=== PATIENT | female | born 1955 | race Caucasian/White ===

== ENCOUNTER 2022-10-14 07:35 | Outpatient (CLI) | payer MEDICARE, SELFPAY ==
[2022-10-14 13:32] LABS: Albumin* 4.1 g/dL (3.3-5.0); Chloride* 107 mmol/L (96-114)
[2022-10-14 13:33] LABS: Potassium* 4.1 mmol/L (3.6-5.1); Sodium* 139 mmol/L (135-149)
[2022-10-14 13:35] LABS: Carbon Dioxide* 26 mmol/L (20-32); Cholesterol* 166 mg/dL (90-199); Creatinine* 0.6 mg/dL (0.5-1.5); Estimated Glomerular Filt Rate 99 ml/min
[2022-10-14 13:36] LABS: Alanine Aminotransferase* 14 U/L (4-35); Alkaline Phosphatase* 66 U/L (40-150); Aspartate Amino Transferase* 18 U/L (12-35); Bilirubin Total* 0.6 mg/dL (0.1-1.5); Blood Urea Nitrogen* 15 mg/dL (7-30); Calcium* 9.3 mg/dL (8.4-10.6); Glucose* 92 mg/dL (60-115); Total Protein* 6.2 g/dL (6.0-8.3); Triglycerides* 84 mg/dL (40-149)
[2022-10-14 13:37] LABS: HDL Cholesterol* 66 mg/dL (>=50); LDL Cholesterol Calculated 83 mg/dL (<100)
[2022-10-14 13:40] LABS: Vitamin D 25 Hydroxy* 37 ng/mL (30-80)
== END 2022-10-14 07:36 | disposition home or self-care (01) ==
LOC: FRMREF 07:36
PROVIDERS: PCP Family Medicine; Visit Provider Family Medicine
DX: Z00.00 Encounter for general adult medical examination without abnormal findings (principal); E78.5 Hyperlipidemia, unspecified; E66.9 Obesity, unspecified
CPT/HCPCS: 80053; 80061; 82306

== ENCOUNTER 2023-06-13 13:22 | Outpatient (CLI) | payer MEDICARE, SELFPAY ==
--- OUTSIDE RECORDS SUMMARY | 2023-06-13 13:26 | XMS_ITS | Continuity of Care Document ---
Author Name Unknown Organization [facility] Address [address] [place] [address] Phone Care Team Providers Care Grinding Mill Operator Name Role Phone Bob Kelly MD Unavailable Unavailable Allergies, Adverse Reactions, Alerts Substance Reaction Status Criticality No Known Allergies Resolved No Inform ation Medications Medication Instructions Dosage Effective Dates (start - stop) Status Comments Voltaren 1 % topical gel Apply 2 gm 3 times a day to small joints and 4 gm 3 times a day to large joints - Active Bufferin 81 mg tablet take 1 tablet by oral route every day - Active Caltrate 600 + D 600 mg (1,500 mg)-800 unit chewable tablet take 1 tablet by oral route every day 1 tablet - Active ibuprofen 200 mg tablet take 3 tablet by oral route every 6 hours as needed with food 600 MG - Active Voltaren 1 % topical gel Apply 2 gm 3 times a day to small joints and 4 gm 3 times a day to large joints - No Longer Active Procedures Procedure Date Office/Outpatient Visit, Est Advance Directives Directive Yes / No Effective Date File Name No Information Encounters Encounter Description Practice Location Reason(s) For Visit Diagnoses Date Provider Providers Copied on Encounter [facility] , [address], [place], [address], [place] tel:[phone] [facility] , No Information 6 Leticia Rojas. [facility] [address], [place], [address], [place]. tel:[phone] [facility] , [address], [place], [address], [place] tel:[phone] [facility] , No Information 6 Leticia Rojas. [facility] [address], [place], [address], [place]. tel:[phone] Office/Outpa tient Visit, Est [facility] , [address], [place], [address], [place] tel:[phone] [facility] , Follow Up of Osteoarthrit is (chief complaint) Generalized osteoarthrit isLong-term use of NSAID 5 Leticia Rojas. [facility] [address], [place], [address], [place]. tel:[phone] Referring Provider: Bob Milian, [facility] [address], [place], [address]. tel:[phone] Family History Family Member Type Diagnosis Age At Onset Father Problem (finding) coronary arter iosclerosis (Cause Of ) 49 Payers Payer name Insurance type Covered green party ID Andrew mao(s) [facility] [id number] Social History Type Description Quantity Date Captured Comments Alcohol Use Details Unknown Caffeine Use Details Unknown Tobacco Use Status No Information Smoking Status No Information Sex Female Chief Complaint And Reason For Visit No Information Reason For Referral Reason For Referral No Information History Of Present Illness Encounter Date Complaint History Of Prese nt Illness Follow Up of Osteoarthritis Functional Status Date Functional Assessmen t No Information Instructions Date Instruction Additional Infor mation She uses a relativel y low dose of the Voltaren gel. I don't think it's necessary to check laboratories for side effects of that. She's had a relatively recent limited physical exam through a primary physician close to her home. Related to Long-term use of NSAID Overall, there has b susanne little progression of her osteoarthritis over 3 years since I last saw her. I don't think she requires more regular use of an oral nonsteroidal anti-inflammatory medication or any other more aggressive treatment at this point. I will refill her Voltaren gel. Related to Generalized osteoarthritis Assessments Type Assessment Date No Information Patient Care Teams Name Effective Dates (start - stop) Status Members No Information
== END 2023-06-13 13:23 | disposition home or self-care (01) ==
PROVIDERS: PCP Family Medicine; Visit Provider Family Medicine
DX: R55 Syncope and collapse (principal); E78.5 Hyperlipidemia, unspecified; R03.0 Elevated blood-pressure reading, without diagnosis of hypertension; Z82.41 Family history of sudden cardiac death
CPT/HCPCS: 80053; 84443

== ENCOUNTER 2023-07-07 13:45 | Outpatient (CLI) | payer MEDICARE, SELFPAY | END 2023-07-07 13:46 | disposition home or self-care (01) | LOC: RAD 13:47 | PROVIDERS: PCP Family Medicine; Visit Provider Family Medicine | DX: R55 Syncope and collapse (principal) | CPT/HCPCS: 93306 ==

== ENCOUNTER 2023-10-19 09:13 | Outpatient (CLI) | payer MEDICARE, SELFPAY ==
--- OUTSIDE RECORDS SUMMARY | 2023-10-20 06:56 | XMS_ITS | Clinical Summary ---
Author Name Unknown Organization [facility] Address [address] [place] [address] Care Team Providers Care Supervisor Core Drilling Name Role Phone Unassigned, Provider Primary Care Provider Unava ilable Source Comments You are receiving this document as you are listed as the primary care provider,follow-up provider, or the patient has been referred to you for consultation.This is in compliance with the Medicare and[facility] EHR Incentive Program,which states Providers who transition their patient to another setting of careor provider of care or refers their patient to another provider of care shouldprovide summary care record for each transition of care or referral. [facility] Allergies No known active allergies Medications Medication Sig Dispensed Refills Start Date End Date Status simvastatin (ZOCOR) 10 MG tablet 0 03/12/2020 Active aspirin 81 MG chewable tablet Chew and swallow 81 mg by mouth daily. 0 Active calcium carbonate-vitamin D 600-400 MG-UNIT tablet Take 1 Tablet by mouth daily. 0 Active diclofenac (VOLTAREN) 1 % gel Apply 2 g to skin 4 times a day. 0 Active Social History Tobacco Use Types Packs/Day Years Used Date Smoking Tobacco: Never Sex and Gender Information Value Date Recorded Sex Assigned at Not on file Gender Identity Not on file Sexual Orientation Not on file Plan of Treatment Health Maintenance Due Date Last Done Comments Hep C Screening (Preventive Services) 1955 COVID-19 Vaccine (#1) 03/22/1957 Adult Preventive Visit 1974 Cholesterol 2001 Colon Cancer Screening Plan Due 12/19/2006 12/18/2006 Mammogram 10/22/2014 10/22/2013 Pneumococcal 65+ Yrs (1 - PCV) 2021 Influenza (#1) 2023 07/28/2020, 02/2019, 08/08/2018, Additional history exists DTaP/Tdap/Td (2 - Tdap) 08/05/2026 08/05/2016 Zoster/Shingles Completed 10/24/2019, 02/2019, 07/26/2017 HepA Aged Out No longer eligi ble based on patient's age to complete this topic HepB Aged Out No longer eligi ble based on patient's age to complete this topic Hib Aged Out No longer eligi ble based on patient's age to complete this topic IPV (Polio) Aged Out No longer eligi ble based on patient's age to complete this topic MCV4 Aged Out No longer eligi ble based on patient's age to complete this topic Care Teams Supervisor Core Drilling Relationship Specialty Start Date End Date Unassigned, Provider [address] [place] [address] PCP - General 09/13/00
--- OUTSIDE RECORDS SUMMARY | 2023-10-20 06:56 | XMS_ITS | Encounter Summary ---
Author Name Unknown Organization [facility] Address [address] [place] [address] Care Team Providers Care Marine Mammal Trainer Name Role Phone Ana Maria Jacinto MD Primary Care Provider + Encounter Details Date Type Department Care Team (Latest Contact Info) Description 09/01/2023 Travel Social History Tobacco Use Types Packs/Day Years Used Date Smoking Tobacco: Never Assessed Adolescent Education Answer Date Record ed Getting School Help Needed Not on file 07/16 Sex and Gender Information Value Date Recorded Sex Assigned at Female 08/26/2021 8:56 AM ROUNDHOUSE WORKER Gender Identity Female 08/26/2021 8:56 AM ROUNDHOUSE WORKER Sexual Orientation Straight 08/26/2021 8: 56 AM ROUNDHOUSE WORKER documented as of this encounter Plan of Treatment Not on file documented as of this encounter Visit Diagnoses Not on filedocumented in this encounter Care Teams Marine Mammal Trainer Relationship Specialty Start Date End Date Ana Maria Jacinto MD [facility] [address] [place] [address] PCP - General Family Practice 07/18/19 documented as of this encounter
--- OUTSIDE RECORDS SUMMARY | 2023-10-20 06:56 | XMS_ITS | Clinical Summary ---
Author Name Unknown Organization [facility] Address [address] [place] [address] Care Team Providers Care Kitchen Supervisor Name Role Phone Ana Maria Jacinto MD Primary Care Provider + Allergies No known active allergies Medications Medication Sig Dispensed Refills Start Date End Date Status ASPIRIN PO Take 81 mg by mouth daily 0 Active IBUPROFEN PO Take 600 mg by mouth every 6 hours as needed for moderate pain 0 Active calcium carbonate-vitamin D 600-400 MG-UNIT CHEW Take 1 tablet by mouth daily 0 Active Cyanocobalamin (VITAMIN B 12 PO) Take by mouth daily 0 Active Active Problems Problem Noted Date Diagnosed Date Cervicalgia 10/07/2008 Encounters Date Type Department Care Team Description 09/01/2023 10:26 AM SUGAR CANE GROWER - 09/01/2023 11:59 PM SUGAR CANE GROWER Hospital Encounter [facility] [address] [facility], [address] [place] [address] Ana Maria Jacinto MD Visit for screening mammogram Discharge Disposition: Home or Self Care 09/01/2023 Travel 08/29/2023 Travel from Last 3 Months Family History Medical History Relation Comments Breast Cancer No family hx of Ovarian Cancer No family hx of Social History Tobacco Use Types Packs/Day Years Used Date Smoking Tobacco: Never Assessed Adolescent Education Answer Date Record ed Getting School Help Needed Not on file 07/16 Sex and Gender Information Value Date Recorded Sex Assigned at Female 08/26/2021 8:56 AM SUGAR CANE GROWER Gender Identity Female 08/26/2021 8:56 AM SUGAR CANE GROWER Sexual Orientation Straight 08/26/2021 8: 56 AM SUGAR CANE GROWER Last Filed Vital Signs Vital Sign Reading Time Taken Comments Blood Pressure 154/74 01/15/2015 3:30 PM CDT Pulse 68 01/15/2015 3:30 PM CDT Temperature 36.7 ??C (98.1 ??F) 01/15/2015 12:37 PM C DT Respiratory Rate 16 01/15/2015 12:37 PM CDT Oxygen Saturation 97% 01/15/2015 12:37 PM CDT Inhaled Oxygen Concentration - - Weight 86.2 kg (190 lb) 01/15/2015 12:37 PM CDT Height 175.3 cm (5' 9) 01/15/2015 12:37 PM CDT Body Mass Index 28.06 01/15/2015 12:37 PM CDT Plan of Treatment Health Maintenance Due Date Last Done Comments ADVANCE CARE PLANNING 1955 ANNUAL REVIEW OF HM ORDERS 1956 CT COLONOGRAPHY 1955 DEXA 1955 FIT 1955 FLEX SIG 1955 sDNA (Cologuard) 1955 COVID-19 Vaccine (#1) 03/22/1957 HEPATITIS C SCREENING 1974 LIPID 2001 RSV VACCINE ( & 60+) (1 - 1-dose 60+ series) 2016 FALL RISK ASSESSMENT 2021 MEDICARE ANNUAL WELLNESS VISIT 2021 INFLUENZA VACCINE (#1) 2023 , 07/28/2020, 08/13/2019, Additional history exists PHQ-2 (once per calendar year) 2023 MAMMO SCREENING 09/01/2025 09/01/2023, 08/10, 08/26/2021, Additional history exists DTAP/TDAP/TD IMMUNIZATION (2 - Td or Tdap) 08/05/2026 08/05/2016 COLONOSCOPY 10/28/2032 10/28/2022, 10/10, 12/18/2006 COLORECTAL CANCER SCREENING 10/28/2032 ZOSTER IMMUNIZATION Completed 10/24/2019, 08/13/2019, 07/26/2017 Pneumococcal Vaccine: 65+ Years Completed 10/18/2022 HPV IMMUNIZATION Aged Out No longer e ligible based on patient's age to complete this topic IPV IMMUNIZATION Aged Out No longer e ligible based on patient's age to complete this topic MENINGITIS IMMUNIZATION Aged Out No l onger eligible based on patient's age to complete this topic RSV MONOCLONAL ANTIBODY Aged Out No l onger eligible based on patient's age to complete this topic Procedures Procedure Name Priority Date/Time Associated Diagnosis Comments MA SCREENING BILATERAL W/ UMANG Routine 09/01/2023 10:52 AM SUGAR CANE GROWER Visit for screening mammogram from Last 3 Months Results * MA Screening Bilateral w/ Umang (09/01/2023 10:52 AM SUGAR CANE GROWER) Anatomical Region Laterality Modality Breast Bilateral Mammography Impressions 09/01/2023 1:00 PM SUGAR CANE GROWER IMPRESSION: ACR BI-RADS Category 1: Negative RECOMMENDED FOLLOW-UP: Annual routine screening mammogram The results and recommendations of this examination will be communicated to the patient. Salvatore Potter MD Narrative 09/01/2023 1:00 PM SUGAR CANE GROWER BILATERAL FULL FIELD DIGITAL SCREENING MAMMOGRAM WITH TOMOSYNTHESIS Performed on: 09/01/23 Compared to: 08/30/2022 and 07/05/2018 Technique: ??This study was evaluated with the assistance of Computer-Aided Detection. ??Breast Tomosynthesis was used in interpretation. Findings: The breasts have scattered areas of fibroglandular density. ?? There is no radiographic evidence of malignancy. Ana Maria Jacinto MD IMG MAMMOGRAPHY ORDERABLES from Last 3 Months Care Teams Kitchen Supervisor Relationship Specialty Start Date End Date Ana Maria Jacinto MD [facility] [address] [place] [address] PCP - General Family Practice 07/18/19
--- OUTSIDE RECORDS SUMMARY | 2023-10-20 06:56 | XMS_ITS | Referral Summary ---
Author Name Unknown Organization [facility] Address [address] [place] [address] Care Team Providers Care Calender Wind Up Helper Name Role Phone Ana Maria Jacinto MD Primary Care Provider + Encounters Date Type Department Care Team Description 09/01/2023 Travel 09/01/2023 10:26 AM MANAGER OF APPLICATIONS DEVELOPMENT - 09/01/2023 11:59 PM MANAGER OF APPLICATIONS DEVELOPMENT Hospital Encounter [facility] [address] [facility], [address] [place] [address] Ana Maria Jacinto MD Visit for screening mammogram Discharge Disposition: Home or Self Care 08/29/2023 Travel from Last 3 Months Allergies No known active allergies Medications Medication [...] Problem Noted Date Diagnosed Date Cervicalgia 10/07/2008 Social History Tobacco Use Types Packs/Day Years Used Date Smoking Tobacco: Never Assessed Adolescent Education Answer Date Record ed Getting School Help Needed Not on file 07/16 Sex and Gender Information Value Date Recorded Sex Assigned at Female 08/26/2021 8:56 AM MANAGER OF APPLICATIONS DEVELOPMENT Gender Identity Female 08/26/2021 8:56 AM MANAGER OF APPLICATIONS DEVELOPMENT Sexual Orientation Straight 08/26/2021 8: 56 AM MANAGER OF APPLICATIONS DEVELOPMENT Last Filed Vital Signs Vital Sign Reading [...] 01/15/2015 12:37 PM CDT Plan of Treatment Not on file Procedures Procedure Name Priority Date/Time Associated Diagnosis Comments MA SCREENING BILATERAL W/ UMANG Routine 09/01/2023 10:52 AM MANAGER OF APPLICATIONS DEVELOPMENT Visit for screening mammogram from Last 3 Months Results * MA Screening Bilateral w/ Umang (09/01/2023 10:52 AM MANAGER OF APPLICATIONS DEVELOPMENT) Anatomical Region Laterality Modality Breast Bilateral Mammography Impressions 09/01/2023 1:00 PM MANAGER OF APPLICATIONS DEVELOPMENT IMPRESSION: ACR BI-RADS Category 1: Negative RECOMMENDED FOLLOW-UP: Annual routine screening mammogram The results and recommendations of this examination will be communicated to the patient. Salvatore Potter MD Narrative 09/01/2023 1:00 PM MANAGER OF APPLICATIONS DEVELOPMENT BILATERAL FULL FIELD DIGITAL SCREENING MAMMOGRAM WITH TOMOSYNTHESIS Performed on: 09/01/23 Compared to: 08/30/2022 and 07/05/2018 Technique: ??This study was evaluated with the assistance of Computer-Aided Detection. ??Breast Tomosynthesis was used in interpretation. Findings: The breasts have scattered areas of fibroglandular density. ?? There is no radiographic evidence of malignancy. Ana Maria Jacinto MD IMG MAMMOGRAPHY ORDERABLES from Last 3 Months Care Teams Calender Wind Up Helper Relationship Specialty Start Date End Date Ana Maria Jacinto MD [facility] [address] [place] [address] PCP - General Family Practice 07/18/19
--- OUTSIDE RECORDS SUMMARY | 2023-10-20 06:56 | XMS_ITS | Encounter Summary ---
Author Name Unknown Organization [facility] Address [address] [place] [address] Care Team Providers Care Electrician Bus Name Role Phone Ana Maria Jacinto MD Primary Care Provider + Reason for Visit * Diagnostic Imaging Mammo (Routine) - Pending Review Specialty Diagnoses / Procedures Referred By Contac t Referred To Contact Radiology. Diagnoses Visit for screening mammogram Procedures MA Screening Bilateral w/ Umang MA Screen Bilateral w/Umang Ana Maria Jacinto MD [address] [address] Referral ID Status Reason Start Date Expiration Date V isits Requested Visits Authorized [id number] Pending Review 08/28/2023 08/27/2024 1 1 Encounter Details Date Type Department Care Team (Latest Contact Info) Description 09/01/2023 10:26 AM ADJUNCT FACULTY - 09/01/2023 11:59 PM [facility] Hospital Encounter [facility] [address] [facility] [place] [address] Ana Maria Jacinto MD [address] [address] Visit for screening mammogram Discharge Disposition: Home or Self Care Social History Tobacco Use Types Packs/Day Years Used Date Smoking Tobacco: Never Assessed Adolescent Education Answer Date Record ed Getting School Help Needed Not on file 07/16 Sex and Gender Information Value Date Recorded Sex Assigned at Female 08/26/2021 8:56 AM ADJUNCT FACULTY Gender Identity Female 08/26/2021 8:56 AM ADJUNCT FACULTY Sexual Orientation Straight 08/26/2021 8: 56 AM ADJUNCT FACULTY documented as of this encounter Medications at Time of Discharge Medication Sig Dispensed Refills Start Date End Date ASPIRIN PO Take 81 mg by mouth daily 0 calcium carbonate-vitamin D 600-400 MG-UNIT CHEW Take 1 tablet by mouth daily 0 Cyanocobalamin (VITAMIN B 12 PO) Take by mouth daily 0 IBUPROFEN PO Take 600 mg by mouth every 6 hours as needed for moderate pain 0 documented as of this encounter Plan of Treatment Not on file documented as of this encounter Procedures Procedure Name Priority Date/Time Associated Diagnosis Comments MA SCREENING BILATERAL W/ UMANG Routine 09/01/2023 10:52 AM ADJUNCT FACULTY Visit for screening mammogram documented in this encounter Results * MA Screening Bilateral w/ Umang (09/01/2023 10:52 AM ADJUNCT FACULTY) Anatomical Region Laterality Modality Breast Bilateral Mammography Impressions 09/01/2023 1:00 PM ADJUNCT FACULTY IMPRESSION: ACR BI-RADS Category 1: Negative RECOMMENDED FOLLOW-UP: Annual routine screening mammogram The results and recommendations of this examination will be communicated to the patient. Salvatore Potter MD Narrative 09/01/2023 1:00 PM ADJUNCT FACULTY BILATERAL FULL FIELD DIGITAL SCREENING MAMMOGRAM WITH TOMOSYNTHESIS Performed on: 09/01/23 Compared to: 08/30/2022 and 07/05/2018 Technique: ??This study was evaluated with the assistance of Computer-Aided Detection. ??Breast Tomosynthesis was used in interpretation. Findings: The breasts have scattered areas of fibroglandular density. ?? There is no radiographic evidence of malignancy. Ana Maria Jacinto MD IMG MAMMOGRAPHY ORDERABLES documented in this encounter Visit Diagnoses Diagnosis Visit for screening mammogram Other screening mammogram documented in this encounter Care Teams Electrician Bus Relationship Specialty Start Date End Date Ana Maria Jacinto MD [facility] & [address] [address] PCP - General Family Practice 07/18/19 documented as of this encounter
--- OUTSIDE RECORDS SUMMARY | 2023-10-20 06:56 | XMS_ITS | Clinical Summary ---
Author Name Unknown Organization [facility] Kymeta [facility] Address [place], [place] [address] Care Team Providers Care Manager Media Relations Name Role Phone Pcp, No Primary Care Provider Unavailabl e Allergies No known active allergies Medications Medication Sig Dispensed Refills Start Date End Date Status aspirin (ECOTRIN) 81 mg enteric coated tablet Take 81 mg by mouth. 0 Active CALCIUM CARBONATE-VITAMIN D2 ORAL Take 1 tablet by mouth. 0 Active loratadine (CLARITIN) 10 mg chewable tablet 0 10/28/2022 Act daljit vit C,C-Cb-tczqg-lutein-luis angel sunil (PreserVision AREDS-2) 250-90-40-1 mg chew 0 10/28/2022 Active aspirin chewable 81 mg chewable tablet Chew by mouth once daily. 0 10/28/2022 Active rosuvastatin (Crestor) 20 mg tabletIndications:Hyper lipidemia, unspecified hyperlipidemia type Take 1 Tablet (20 mg) by mouth at bedtime. 90 Tablet 3 08/09/2023 Active Active Problems Problem Noted Date Diagnosed Date Hyperopia of both eyes with astigmatism and pres byopia 09/10/2018 Nuclear senile cataract of both eyes 09/10/2018 COUGH 05/14/2001 Encounters Date Type Department Care Team Description 10/10/2023 2:20 PM CHRONOGRAPH OPERATOR Office Visit [facility] [address] [place] [address] Karan Caballero OD Eye Exam (CEE) 10/10/2023 Travel 08/17/2023 Telephone [facility] Britni Dixon [address] [place] [address] Dr [address] [address] Amie Soto MD Results 08/09/[address] Frank [address] [address] Amie Soto MD Results 08/08/2023 10:00 AM CDT Ancillary Procedure [facility] [address] [place] [address] Dr [address] [address] 08/08/2023 9:45 AM CDT Orders Only [facility] [address] [place] [address] [place] [address] Lab 08/07/2023 Travel 07/21/2023 9:30 AM CDT Office Visit [facility] & [address] [address] Amie Soto MD 07/21/2023 Telephone [facility] [address] [place] [address] [place] [address] Amie Soto MD Follow Up 07/20/2023 Travel from Last 3 Months Family History Medical History Relation Name Comments Hypertension Mother Genetic Other 1 Heart disease- father Other Other 2 niece lazy eye Relation Name Status Comments Father Heart attack Mother Other 1 Other 2 Social History Tobacco Use Types Packs/Day Years Used Date Smoking Tobacco: Never Alcohol Use Standard Drinks/Week Comments Not Asked 0 (1 standard drink = 0.6 oz pur e alcohol) Social Connections Answer Date Recorded Frequency of Communication with Friends and Fami ly Not on file 07/21/2023 Sex and Gender Information Value Date Recorded Sex Assigned at Not on file Gender Identity Not on file Sexual Orientation Not on file Obstetrics History Last Filed Vital Signs Vital Sign Reading Time Taken Comments Blood Pressure 164/78 06/03/2016 2:42 PM CDT Pulse 62 06/03/2016 2:42 PM CDT Temperature 36.9 ??C (98.5 ??F) 05/26/2006 4:00 PM CD T Respiratory Rate - - Oxygen Saturation - - Inhaled Oxygen Concentration - - Weight - - Height - - Body Mass Index - - Plan of Treatment Upcoming Encounters Date Type Department Care Team (Late st Contact Info) Description 10/25/2023 9:00 AM CHRONOGRAPH OPERATOR Procedure Only [facility] [address] [place] [address] Health Maintenance Due Date Last Done Comments COVID-19 vaccine series (#1) 03/22/1956 Tdap 1967 Depression screening for age 12+ 1968 BMI (ht and wt on same day) for age 18+ 1974 Hepatitis C screening for age 18-79 1974 Tetanus booster 1976 Colonoscopy through age 75 2001 Lipids for age 45-75 2001 Mammogram for age 45-75 2001 Zoster (shingles) series for age 50+ (1 of 2) 09/21/20 06 DEXA/DXA scan for age 65+ 2021 Medicare Wellness for age 65+ 2021 Pneumococcal series for age 65+ (1 of 1 - PCV) 021 Influenza for age 65+ 06/09/2023 Procedures Procedure Name Priority Date/Time Associated Diagnosis Comments EXTENDED HOLTER Routine 08/16/2023 SOB (shortness of breath) Family history of premature CAD Syncope, unspecified syncope type CT CARDIAC CORONARY ARTERIES DUAL READ Routine 08/08/2023 11:15 AM CDT SOB (shortness of breath) Family history of premature CAD Syncope, unspecified syncope type CREATININE,ISTAT Routine 08/08/2023 11:0 1 AM CDT Pre-procedure lab exam from Last 3 Months Results * Giannio XT (08/16/2023) Amie Soto MD CARDIAC SERVICE S ORD * CT CARDIAC CORONARY ARTERIES DUAL READ (08/08/2023 11:15 AM CDT) Anatomical Region Laterality Modality HEART Computed Tomogra phy 08/08/2023 11:0 9 AM CDT Impressions 08/08/2023 4:59 PM CDT No acute or suspicious extracardiac imaging abnormality. Please note that all CT scans at this facility use dose modulation, iterative reconstruction and/or weight-based dosing when appropriate to reduce radiation dose to as low as reasonably achievable. ?? Checo Samano M.D. Pediatric/Diagnostic Radiologist [email or web address] ADDI/[email or web address] / ? Narrative 08/08/2023 4:59 PM CDT ?[facility] ? Cardiac CT Report ??MRN: ? [id number] ?Name: ? ELIZABETH, EPHRAIM Vázquez ?: ?Scan Date: ?Accession Number: ? [id number] ? Electronically signed by Nigel Andrade 11:44:41 VITALS HEIGHT: 68 in ?(173 cm) WEIGHT: 190 lbs ?(86 kgs) BSA: 2.00 m^2 BMI: 29 kg/m^2 BP: 166 / 81 mmHg BASELINE HR: 55 BPM HEART RHYTHM: Normal Sinus Rhythm FINAL IMPRESSION 1) Diffuse multivessel coronary atherosclerosis without significant stenosis. - Total coronary artery calcium score 365. TORRES percentile based on age, gender, and race is 93. RECOMMENDATIONS: - Patient exhibits elevated coronary atherosclerosis burden and will likely benefit from aggressive risk factor modification. - Cardiovascular risk factor modification measures including preventive medical therapy for coronary atherosclerosis (statin +/- other treatment for a low LDL target and aspirin in the absence of contraindications) are advised. STUDY QUALITY: Study quality is good. CAD-RADS: CAD-RADS Classification 2 (25-49% stenosis). CALCIUM SCORING: Total coronary artery calcium score 365. TORRES percentile based on age, gender, and race is 93. DOMINANCE: Right dominant coronary artery system. LM: The LM is normal. LAD: The proximal LAD has calcified atherosclerosis. ??There is a <25% proximal LAD stenosis. ??The mid LAD has partially calcified atherosclerosis. ??There is a 25-49% mid LAD stenosis. ?There is no distal LAD stenosis. D1: The first diagonal is normal. D2: The second diagonal is normal. LCX: The proximal LCx has calcified atherosclerosis. ??There is a <25% proximal LCx stenosis. ?There is no mid LCx stenosis. ??There is no distal LCx stenosis. OM1: The first obtuse marginal is normal. RCA: The proximal RCA has calcified atherosclerosis. ??There is a <25% proximal RCA stenosis. ??The mid RCA has calcified atherosclerosis. ??There is a <25% mid RCA stenosis. ??There is no distal RCA stenosis. RIGHT PDA: The right PDA has calcified atherosclerosis. There is a <25% right PDA stenosis. RIGHT PLB: The right posterolateral branch is normal. OTHER FINDINGS: - Normal caliber of the aortic root and thoracic aorta. Trileaflet aortic valve. - No left atrial or left atrial appendage thrombus. Normal pulmonary venous return. - Normal pericardial thickness without effusion. CALCIUM SCORING TABLE . . ? Number of Lesions Pattern of Calcium Volume Total Score +-------+ + +--------+ + LM ? 0 ? 0 LAD ? 0 ? 236 LCx ? 0 ?23 RCA ? 0 ? 106 Ramus ? 0 ? 0 '-------+ + +--------+ ' SCAN INFO TEST TYPE: ??Calcium score, Coronary CT Angiography SCANNER FOREST ECOLOGIST: ??SIEMENS SCANNER MODEL: ??[employer] DOSE REDUCTION ALGORITHM: ??Helical with dose modulation PHASE UNITS: ??% START PHASE: ??67 % END PHASE: ??72 % EKG GATED: ??Yes PRE-CONTRAST: ??Yes POST-CONTRAST: ??Yes 3D RECONSTRUCTION: ??Yes GENERAL ?CONTRAST AGENT ?CONTRAST AGENT USED?: ??Yes ?TYPE: ??Omnipaque 350 ?DOSE: ??100 ml ?RATE: ??6 ml/s ?ROUTE: ??IV ?ARM: ??Left ?BOLUS TECHNIQUE: ??Biphasic ?SERUM CREATININE: ??0.7 mg/dL ?CREATININE DATE: ?CT CONTRAST REACTION: ??None ?MEDICATION ADMINISTERED DURING SCAN ?TYPE: ??Nitroglycerin, sublingual, B-Blockers ?NITROGLYCERIN, TOTAL DOSE: ??0.8 mg ?B-RYAN TYPE: ??Oral ?B-RYAN NAME, ORAL: ??Metoprolol tartrate ?B-BLOCKERS, ORAL DOSE: ??100 mg ?RADIATION DOSE ?DLP: ??235 ?KV: ??100 ?SETUP ?PATIENT TYPE: ??Outpatient ?REASON(S) FOR SCAN: ??Shortness of breath ?REFERRING PHYSICIAN: ??AMIE SOTO ?TECHNOLOGIST: ??Judith Mejia BILLING Patient Account ?[id number] ICD10 Codes ?R06.02, Z82.49, R55 Report generated by [employer], a product of [employer] For Patients: As a result of the 21st Century Cures Act, medical imaging exams and procedure reports are released immediately into your electronic medical record. ??You may view this report before your referring provider. ?? If you have questions, please contact your health care provider. OVER-READ ??OVER-READ ??OVER-READ OVER-READ: DETAILED RADIOLOGY EXTRACARDIAC OVER-READ OF CARDIAC CT 08/08/2023 TECHNIQUE: ??Please see cardiology report for technical information. ??100 cc Omnipaque-350 intravenous contrast. This exam is being performed in conjunction with the services provided by the [facility] ([facility]). CLINICAL HISTORY: ??Cardiac CTA over-read. ? FINDINGS: Lungs: Scarring in the right medial anterior lung. ?? Pleural Spaces: No pleural effusions. Pulmonary Arteries: Bolus timing limits evaluation. ?? Aorta: No signs for dissection. Mediastinum: No adenopathy. Miscellaneous: No additional suspicious abnormalities. Amie Soto MD CT * CREATININE,ISTAT (08/08/2023 11:01 AM CDT) CREATININE, POCT 0.70 0.57 - 1.11 mg/dL 08/08/2023 11:05 AM CDT [facility] eGFR >90 >90 mL/min/1.7 3m2 08/08/2023 11:05 AM CDT [facility] Comment:As of 2021, eG FR is calculated by the CKD-EPI creatinine equation without race adjustment. eGFR can be influenced by muscle mass, exercise, and diet. The reported eGFR is an estimation only and is only applicable if the renal function is stable. Blood BLOOD SPECIMEN / Unknown 08/08/2023 11:01 AM CDT 08/08/2023 11:05 AM CDT Nigel Andrade MD [facility] [address] [place] [address], [place] from Last 3 Months Care Teams Manager Media Relations Relationship Specialty Start Date End Date Pcp, No . PCP - General 05/31/16
--- OUTSIDE RECORDS SUMMARY | 2023-10-20 06:56 | XMS_ITS | Encounter Summary ---
Author Name Unknown Organization [facility] Address [address] [place] [address] Care Team Providers Care Sales Analyst Name Role Phone Ana Maria Jacinto MD Primary Care Provider + Encounter Details Date Type Department Care Team (Latest Contact Info) Description 08/29/2023 Travel Social History Tobacco Use Types Packs/Day Years Used Date Smoking Tobacco: Never Assessed Adolescent Education Answer Date Record ed Getting School Help Needed Not on file 07/16 Sex and Gender Information Value Date Recorded Sex Assigned at Female 08/26/2021 8:56 AM REGULATORY AFFAIRS ANALYST Gender Identity Female 08/26/2021 8:56 AM REGULATORY AFFAIRS ANALYST Sexual Orientation Straight 08/26/2021 8: 56 AM REGULATORY AFFAIRS ANALYST documented as of this encounter Plan of Treatment Not on file documented as of this encounter Visit Diagnoses Not on filedocumented in this encounter Care Teams Sales Analyst Relationship Specialty Start Date End Date Ana Maria Jacinto MD [facility] [address] [place] [address] PCP - General Family Practice 07/18/19 documented as of this encounter
== END 2023-10-19 09:14 | disposition home or self-care (01) ==
LOC: NFLDREF 10-20 06:54
PROVIDERS: PCP Family Medicine; Referring Provider Family Medicine; Visit Provider Family Medicine
DX: E78.5 Hyperlipidemia, unspecified (principal); M85.80 Other specified disorders of bone density and structure, unspecified site; Z13.1 Encounter for screening for diabetes mellitus
CPT/HCPCS: 80061; 82306; 82947

== ENCOUNTER 2023-11-09 12:42 | Outpatient (CLI) | payer MEDICARE, SELFPAY ==
--- OUTSIDE RECORDS SUMMARY | 2023-11-09 12:47 | XMS_ITS | Referral Summary ---
Author Name Unknown Organization [facility] Address [address] [place] [address] Care Team Providers Care Mental Health Specialist Name Role Phone Ana Maria Jacinto MD Primary Care Provider + Encounters Date Type Department Care Team Description 09/01/2023 Travel 09/01/2023 10:26 AM HYDROELECTRIC SYSTEMS TECHNICIAN - 09/01/2023 11:59 PM HYDROELECTRIC SYSTEMS TECHNICIAN Hospital Encounter [facility] [address], [address] [place] [address] Ana Maria Jacinto MD Visit [...] Sex Assigned at Female 08/26/2021 8:56 AM HYDROELECTRIC SYSTEMS TECHNICIAN Gender Identity Female 08/26/2021 8:56 AM HYDROELECTRIC SYSTEMS TECHNICIAN Sexual Orientation Straight 08/26/2021 8: 56 AM HYDROELECTRIC SYSTEMS TECHNICIAN Last Filed Vital Signs Vital Sign Reading [...] BILATERAL W/ UMANG Routine 09/01/2023 10:52 AM HYDROELECTRIC SYSTEMS TECHNICIAN Visit for screening mammogram from Last 3 Months Results * MA Screening Bilateral w/ Umang (09/01/2023 10:52 AM HYDROELECTRIC SYSTEMS TECHNICIAN) Anatomical Region Laterality Modality Breast Bilateral Mammography Impressions 09/01/2023 1:00 PM HYDROELECTRIC SYSTEMS TECHNICIAN IMPRESSION: ACR BI-RADS Category 1: Negative RECOMMENDED FOLLOW-UP: Annual routine screening mammogram The results and recommendations of this examination will be communicated to the patient. Salvatore Potter MD Narrative 09/01/2023 1:00 PM HYDROELECTRIC SYSTEMS TECHNICIAN BILATERAL FULL FIELD DIGITAL SCREENING MAMMOGRAM WITH TOMOSYNTHESIS Performed on: 09/01/23 Compared to: 08/30/2022 and 07/05/2018 Technique: ??This study was evaluated with the assistance of Computer-Aided Detection. ??Breast Tomosynthesis was used in interpretation. Findings: The breasts have scattered areas of fibroglandular density. ?? There is no radiographic evidence of malignancy. Ana Maria Jacinto MD IMG MAMMOGRAPHY ORDERABLES from Last 3 Months Care Teams Mental Health Specialist Relationship Specialty Start Date End Date Ana Maria Jacinto MD [facility] [address] [place] [address] PCP - General Family Practice 07/18/19
--- OUTSIDE RECORDS SUMMARY | 2023-11-09 12:47 | XMS_ITS | Encounter Summary ---
Author Name Unknown Organization [facility] Address [address] [place] [address] Care Team Providers Care Board Layer Name Role Phone Ana Maria Jacinto MD [...] Sex Assigned at Female 08/26/2021 8:56 AM CLIENT DEVELOPMENT MANAGER Gender Identity Female 08/26/2021 8:56 AM CLIENT DEVELOPMENT MANAGER Sexual Orientation Straight 08/26/2021 8: 56 AM CLIENT DEVELOPMENT MANAGER documented as of this encounter Plan of Treatment Not on file documented as of this encounter Visit Diagnoses Not on filedocumented in this encounter Care Teams Board Layer Relationship Specialty Start Date End Date Ana Maria Jacinto MD [facility] [address] [place] [address] PCP - General Family Practice 07/18/19 documented as of this encounter
--- OUTSIDE RECORDS SUMMARY | 2023-11-09 12:47 | XMS_ITS | Encounter Summary ---
Author Name Unknown Organization [facility] Address [address] [place] [address] Care Team Providers Care Network Architect Name Role Phone Ana Maria Jacinto MD [...] Sex Assigned at Female 08/26/2021 8:56 AM INFORMATION TECHNOLOGY PROFESSOR Gender Identity Female 08/26/2021 8:56 AM INFORMATION TECHNOLOGY PROFESSOR Sexual Orientation Straight 08/26/2021 8: 56 AM INFORMATION TECHNOLOGY PROFESSOR documented as of this encounter Plan of Treatment Not on file documented as of this encounter Visit Diagnoses Not on filedocumented in this encounter Care Teams Network Architect Relationship Specialty Start Date End Date Ana Maria Jacinto MD [facility] [address] [place] [address] PCP - General Family Practice 07/18/19 documented as of this encounter
--- OUTSIDE RECORDS SUMMARY | 2023-11-09 12:47 | XMS_ITS | Encounter Summary ---
Author Name Unknown Organization [facility] Address [address] [place] [address] Care Team Providers Care Fire Extinguisher Mechanic Name Role Phone Ana Maria Jacinto MD Primary Care Provider + Reason for Visit * Diagnostic Imaging Mammo (Routine) - Pending Review Specialty Diagnoses / Procedures Referred By Contac t Referred To Contact Radiology. Diagnoses Visit for screening mammogram Procedures MA Screening Bilateral w/ Umang MA Screen Bilateral w/Umang Ana Maria Jacinto MD [address] [address] Referral ID Status Reason Start Date Expiration Date V isits Requested Visits Authorized [id number] Pending Review 08/28/2023 08/27/2024 1 1 Encounter Details Date Type Department Care Team (Latest Contact Info) Description 09/01/2023 10:26 AM KNIFE SETTER GRINDER MACHINE - 09/01/2023 11:59 PM [facility] Hospital Encounter [facility] [address] [place] [address] Ana Maria Jacinto MD [address] [address] Visit for screening mammogram Discharge Disposition: Home or Self Care Social History Tobacco Use Types Packs/Day Years Used Date Smoking Tobacco: Never Assessed Adolescent Education Answer Date Record ed Getting School Help Needed Not on file 07/16 Sex and Gender Information Value Date Recorded Sex Assigned at Female 08/26/2021 8:56 AM KNIFE SETTER GRINDER MACHINE Gender Identity Female 08/26/2021 8:56 AM KNIFE SETTER GRINDER MACHINE Sexual Orientation Straight 08/26/2021 8: 56 AM KNIFE SETTER GRINDER MACHINE documented as of this encounter Medications at [...] BILATERAL W/ UMANG Routine 09/01/2023 10:52 AM KNIFE SETTER GRINDER MACHINE Visit for screening mammogram documented in this encounter Results * MA Screening Bilateral w/ Umang (09/01/2023 10:52 AM KNIFE SETTER GRINDER MACHINE) Anatomical Region Laterality Modality Breast Bilateral Mammography Impressions 09/01/2023 1:00 PM KNIFE SETTER GRINDER MACHINE IMPRESSION: ACR BI-RADS Category 1: Negative RECOMMENDED FOLLOW-UP: Annual routine screening mammogram The results and recommendations of this examination will be communicated to the patient. Salvatore Potter MD Narrative 09/01/2023 1:00 PM KNIFE SETTER GRINDER MACHINE BILATERAL FULL FIELD DIGITAL SCREENING MAMMOGRAM WITH [...] mammogram documented in this encounter Care Teams Fire Extinguisher Mechanic Relationship Specialty Start Date End Date Ana Maria Jacinto MD [facility] & [address] [address] PCP - General Family Practice 07/18/19 documented as of this encounter
--- OUTSIDE RECORDS SUMMARY | 2023-11-09 12:47 | XMS_ITS | Clinical Summary ---
Author Name Unknown Organization [facility] Address [place], [place] [address] Care Team Providers Care Regional Liaison Name Role Phone Pcp, No Primary Care Provider Unavailabl e Allergies No known active allergies Medications Medication Sig Dispensed Refills Start Date End Date Status aspirin (ECOTRIN) 81 mg enteric coated tablet Take 81 mg by mouth. 0 Active CALCIUM CARBONATE-VITAMIN D2 ORAL Take 1 tablet by mouth. 0 Active loratadine (CLARITIN) 10 mg chewable tablet 0 10/28/2022 Active vit C,S-Ju-zkkje-lutein- zeaxan (PreserVision AREDS-2) 250-90-40-1 mg chew 0 10/28/2022 Active aspirin chewable 81 mg chewable tablet Chew by mouth once daily. 0 10/28/2022 Active rosuvastatin (Crestor) 10 mg tabletIndications:Hy perlipidemia, unspecified hyperlipidemia type Take 1 Tablet (10 mg) by mouth at bedtime. NOTE: DOSE DECREASED FROM 20 to 10 mg. Have lipids re-checked in 3 months (prior to 02/2024) 90 Tablet 1 10/30/2023 Active rosuvastatin (Crestor) 20 mg tabletIndications:Hy perlipidemia, unspecified hyperlipidemia type Take 1 Tablet (20 mg) by mouth at bedtime. 90 Tablet 3 08/09/2023 Discontinue d(*Med complete/Re gimen complete/[place] of care change) Active Problems Problem Noted Date Diagnosed Date Hyperopia of both eyes with astigmatism and pres byopia 09/10/2018 Nuclear senile cataract of both eyes 09/10/2018 COUGH 05/14/2001 Encounters Date Type Department Care Team Description 10/25/2023 9:00 AM TRIM STENCIL MAKER Procedure Only [facility] [address] [place] [address] Testing (OCT/visual field and results) 10/25/2023 Travel 10/23/2023 Telephone [facility] [address] [facility] [address] [place] [address] Scout Spangler MD Medication Management (Statin dose decrease and re-check lipids) 10/23/2023 Travel 10/19/2023 Orders Only [facility] Scanner 1 scan: (1-Ord) [facility], CLINICAL LABORATORY REPORT, 10/19/2023 10/10/2023 2:20 PM TRIM STENCIL MAKER Office Visit [facility] [address] [place] [address] Karan Caballero, OD Eye Exam (CEE) 10/10/2023 Travel 08/17/2023 [facility] [address] [place] [address] Dr Frank [address] [address] Scout Spangler MD Results 08/09/[address] Frank [address] [address] Scout Spangler MD Results from Last 3 Months Family History Medical [...] Care Team (Late st Contact Info) Description 02/05/2024 8:15 AM CDT Orders Only [facility] [address] [place] [address] Lab, [facility] Maintenance Due Date Last Done Comments [...] Procedure Name Priority Date/Time Associated Diagnosis Comments SCAN-LABORATORY REPORT 10/19/2023 12:00 AM TRIM STENCIL MAKER EXTENDED HOLTER Routine 08/16/2023 SOB (shortness of breath) Family history of premature CAD Syncope, unspecified syncope type from Last 3 Months Results * SCAN-LABORATORY REPORT (10/19/2023 12:00 AM TRIM STENCIL MAKER) Scanner OTHER * Zio XT (08/16/2023) Scout Spangler MD CARDIAC SERVICE S ORD from Last 3 Months Care Teams Regional Liaison Relationship Specialty Start Date End Date Pcp, No . PCP - General 05/31/16
--- OUTSIDE RECORDS SUMMARY | 2023-11-09 12:47 | XMS_ITS | Clinical Summary ---
Author Name Unknown Organization [facility] Address [address] [place] [address] Care Team Providers Care Transition Social Worker Name Role Phone Ana Maria Jacinto MD [...] Department Care Team Description 09/01/2023 10:26 AM RAIL OPERATOR - 09/01/2023 11:59 PM RAIL OPERATOR Hospital Encounter [facility] [address], [address] [place] [address] Ana Maria Jacinto MD Visit [...] Sex Assigned at Female 08/26/2021 8:56 AM RAIL OPERATOR Gender Identity Female 08/26/2021 8:56 AM RAIL OPERATOR Sexual Orientation Straight 08/26/2021 8: 56 AM RAIL OPERATOR Last Filed Vital Signs Vital Sign Reading [...] BILATERAL W/ UMANG Routine 09/01/2023 10:52 AM RAIL OPERATOR Visit for screening mammogram from Last 3 Months Results * MA Screening Bilateral w/ Umang (09/01/2023 10:52 AM RAIL OPERATOR) Anatomical Region Laterality Modality Breast Bilateral Mammography Impressions 09/01/2023 1:00 PM RAIL OPERATOR IMPRESSION: ACR BI-RADS Category 1: Negative RECOMMENDED FOLLOW-UP: Annual routine screening mammogram The results and recommendations of this examination will be communicated to the patient. Salvatore Potter MD Narrative 09/01/2023 1:00 PM RAIL OPERATOR BILATERAL FULL FIELD DIGITAL SCREENING MAMMOGRAM WITH TOMOSYNTHESIS Performed on: 09/01/23 Compared to: 08/30/2022 and 07/05/2018 Technique: ??This study was evaluated with the assistance of Computer-Aided Detection. ??Breast Tomosynthesis was used in interpretation. Findings: The breasts have scattered areas of fibroglandular density. ?? There is no radiographic evidence of malignancy. Ana Maria Jacinto MD IMG MAMMOGRAPHY ORDERABLES from Last 3 Months Care Teams Transition Social Worker Relationship Specialty Start Date End Date Ana Maria Jacinto MD [facility] [address] [place] [address] PCP - General Family Practice 07/18/19
--- OUTSIDE RECORDS SUMMARY | 2023-11-09 12:47 | XMS_ITS | Clinical Summary ---
Author Name Unknown Organization [facility] Address [address] [place] [address] Care Team Providers Care Production Line Mechanic Name Role Phone Unassigned, Provider Primary Care Provider Unava ilable Source Comments You are receiving this document as you are listed as the primary care provider,follow-up provider, or the patient has been referred to you for consultation.This is in compliance with the Medicare and[facility] EHR Incentive Program,which states Providers who transition [...] age to complete this topic Care Teams Production Line Mechanic Relationship Specialty Start Date End Date Unassigned, Provider [address] [place] [id number] PCP - General 09/13/00
--- NOTE | 2023-11-09 13:00 | CRLHL7_ITS ---
For Patients: As a result of the Century Cures Act, medical imaging exams and procedure reports are released immediately into your electronic medical record. You may view this report before your referring provider. If you have questions, please contact your health care provider. DXA BONE MINERAL DENSITY STUDY Current height (in): 68.0. Weight (lb): 188.0. Menopause age: 51. Ethnicity: White. Reason for exam: Osteoarthritis. Osteopenia. 1. Have you had a previous hip or vertebral fracture? No. 2. Have you had any fractures during your adult life which did not result from significant trauma (e.g., auto accident)? No. 3. Did either of your parents have a hip fracture? No. 4. Do you smoke? No. 5. Have you ever taken Glucocorticoids? No. 6. Do you have rheumatoid arthritis? No. 7. Do you have secondary osteoporosis? No. 8. Do you drink 3 or more alcoholic drinks per day? No. 9. Are you being treated for osteoporosis? No. 10. Have you ever taken any of the following medications: Actonel, Evista, Fosamax, Miacalcin, Reclast, Boniva, Forteo, HRT (i.e. estrogen/hormone therapy), Protelos, Prolia, Vitamin D, Calcium, other ??? please specify. ANSWER: No. 11. Do you have any of the following medical conditions: Anorexia or bulimia, asthma or emphysema, end stage renal disease, hyperparathyroidism, any seizure disorders, cancer, inflammatory bowel diseases, hysterectomy, other ??? please specify. ANSWER: No. 12. What was your maximum height (inches)? 69. 13. Do you perform weight bearing exercise regularly? No. 14. Do you regularly consume dairy products? No. 15. Do you drink caffeinated beverages? Yes. 16. At what age did your period start? 14. 17. Are you premenopausal? No. 18. How many full term pregnancies have you had? 2. 19. Have you ever missed your period for more than 6 months in a row (not including or menopause)? No. TECHNIQUE: Bone mineral density study was performed using the [employer]. FINDINGS: The results of the study expressed as bone mineral density (BMD) are as follows: Lumbar spine L1 to L4: BMD: 1.348 g/cm2. T-score: 2.7. Z-score: 4.6 Neck Left: BMD: 0.718 g/cm2. T-score: -1.2. Z-score: 0.4 Right: BMD: 0.703 g/cm2. T-score: -1.3. Z-score: 0.3 Total Left: BMD: 0.922 g/cm2. T-score: -0.2. Z-score: 1.2 Right: BMD: 0.963 g/cm2. T-score: 0.2. Z-score: 1.5 IMPRESSION: Osteopenia. *Comparison exams done prior to 03/2020 were performed on different unit, [employer]. COMPARISON: Compared with scan of , the bone mineral density has increased by 3.3 percent at the spine and increased by 0.7 percent at the hip. FRAX 10-year Fracture Risk Major Osteoporotic Fracture: 8.8 percent Hip Fracture: 0.9 percent Reported Risk Factors: [place] () Neck BMD = 0.703, BMI = 28.6 Denis Sanchez M.D. Diagnostic Radiologist [email or web address] Transcribed: 3:45 pm DW/Dictated by: Denis Sanchez MD @ 11/09/2023 3:35:00 PM (Electronically Signed)
== END 2023-11-09 12:43 | disposition home or self-care (01) ==
LOC: RAD 12:45
PROVIDERS: PCP Family Medicine; Visit Provider Family Medicine
DX: M85.80 Other specified disorders of bone density and structure, unspecified site (principal); M19.90 Unspecified osteoarthritis, unspecified site
CPT/HCPCS: 77080

== ENCOUNTER 2024-10-18 09:50 | Outpatient (CLI) | payer MEDICARE, SELFPAY | END 2024-10-18 09:51 | disposition home or self-care (01) | LOC: NFLDREF 10-27 16:10 | PROVIDERS: PCP Family Medicine; Referring Provider Family Medicine; Visit Provider Family Medicine | DX: E78.5 Hyperlipidemia, unspecified (principal); M15.9 Polyosteoarthritis, unspecified; M85.89 Other specified disorders of bone density and structure, multiple sites | CPT/HCPCS: 80053; 80061; 82306 ==